=== PATIENT | female | born 1960 | race African-American/Black ===

== ENCOUNTER 2019-01-08 12:17 | Inpatient (IN) | payer OTHER ==
[2019-01-08 12:27] VITALS: BMI 25.0
[2019-01-08] MEDS ORDERED: ONDANSETRON *ODT* 4 MG TABLET SL ONE (13:12)
[2019-01-08] MEDS ORDERED: ONDANSETRON *ODT* 4 MG TABLET ONE (13:20)
[2019-01-08] MEDS ORDERED: SODIUM CHLORIDE 0.9% 1000 ML INFUS.BAG IV ONE ×2 (13:37→18:13)
[2019-01-08] MEDS ORDERED: ONDANSETRON 4 MG/2 ML VIAL ONE ×2 (14:58→20:04)
[2019-01-08 15:22] LABS: BASO % 2.8 % (0-2.0); HEMATOCRIT 44.7 % (32.4-45.2); HEMOGLOBIN 14.4 GM/dl (10.7-15.3); LYMPH % 11.7 % (8-40); MCHC 32.2 g/dl (32.0-36.0); MEAN PLT VOLUME 8.7 fl (7.5-11.1); MONO % 10.8 % (3.8-10.2); NEUT % 74.7 % (42.8-82.8); PLATELET COUNT 409 K/MM3 (134-434); RBC 5.14 M/mm3 (3.60-5.2); RDW 12.9 % (11.6-15.6); WHITE BLOOD COUNT 7.6 K/mm3 (4.0-10.8)
[2019-01-08 15:24] LABS: ALBUMIN 4.7 g/dl (3.4-5.0); ALK PHOS 92 U/L (45-117); ANION GAP 13 MMOL/L (8-16); BILIRUBIN,TOTAL 1.5 mg/dl (0.2-1); BLOOD UREA NITROGEN 38 mg/dl (7-18); CALCIUM 9.8 mg/dl (8.5-10); CHLORIDE 97 mmol/L (98-107); CO2 29 mmol/L (21-32); CREATININE 0.9 mg/dl (0.55-1.3); GLUCOSE,RANDOM 133 mg/dl (74-106); SGOT/AST 34 U/L (15-37); SGPT/ALT 16 U/L (13-61); SODIUM 139 mmol/L (136-145); TOT PROT 7.7 g/dl (6.4-8.2)
[2019-01-08] MEDS ORDERED: ONDANSETRON 4 MG/2 ML VIAL IVPUSH ONE ×2 (15:31→19:52)
[2019-01-08 16:26] LABS: LIPASE 208 U/L (73-393)
--- NOTE | 2019-01-08 18:13 | PDOC ---
History of Present Illness - General Chief Complaint: Nausea/Vomiting Stated Complaint: VOMITING Time Seen by Provider: 01/08/19 12:34 History Source: Patient Exam Limitations: No Limitations - History of Present Illness Initial Comments: 01/08/19 18:09 58 yo F with h/o prior appendectomy myomectomy c section x 2 and hysterectomy h; o sbo, here with c/o n/v. pt states started 3 days ago, has had diffuse abd pain. no f/c no urinary complaints. no f/c no other pains. pt states has had a bm recently which was normal yesterday. no diarreha. does not feel as severe as her prior sbo. no sick contacts. no travel. Past History - Past Medical History Allergies/Adverse Reactions: Allergies Allergy/AdvReac Type Severity Reaction Status Date / Time No Known Allergies Allergy Verified 01/08/19 12:18 Home Medications: Ambulatory Orders Cholecalciferol (Vitamin D3) [Vitamin D] 2,000 unit PO DAILY 04/19/15 Ibuprofen [Motrin -] 400 mg PO PRN PRN 01/08/19 Multivitamins [Tab-A-Vit -] 1 tab PO DAILY 01/08/19 [place]-3 Fatty Acids/Fish Oil [Fish Oil 1,000 mg Capsule] 2 each PO DAILY COPD: No - Suicide/Smoking/Psychosocial Hx Smoking History: Never smoked Have you smoked in the past 12 months: No Information on smoking cessation initiated: No Hx Alcohol Use: No Drug/Substance Use Hx: No Review of Systems - Review of Systems Constitutional: No: Chills, Diaphoresis, Fever, Unexplained wgt Loss HEENTM: No: Blurred Vision, Difficulty Swallowing Respiratory: No: Orthopnea Cardiac (ROS): No: Chest Pain, Edema ABD/GI: Yes: Nausea, Vomiting : No: Burning, Dysuria, Discharge Musculoskeletal: No: Back Pain, Gout All Other Systems: Reviewed and Negative *Physical Exam - Vital Signs Last Vital Signs Temp Pulse Resp BP Pulse Ox 98.8 F 78 17 157/95 100 01/08/19 17:34 01/08/19 17:34 01/08/19 17:34 01/08/19 17:34 01/08/19 17:34 - Physical Exam Comments: 01/08/19 18:11 awake alert lungs clear bilaterally heart rrr no mrg abd soft mild periumbilical ttp. no palp hernia. old scar seen umbilicus and suprapubic region. ext wwp. neuro alert orineted x 3. Moderate Sedation - Procedure Monitoring Vital Signs: Procedure Monitoring Vital Signs Temperature 98.8 F 01/08/19 17:34 Pulse Rate 78 01/08/19 17:34 Respiratory Rate 17 01/08/19 17:34 Blood Pressure 157/95 01/08/19 17:34 O2 Sat by Pulse Oximetry (%) 100 01/08/19 17:34 ED Treatment Course - LABORATORY CBC & Chemistry Diagram: 01/08/19 15:00 01/08/19 15:00 - ADDITIONAL ORDERS Additional order review: Laboratory Results 01/08/19 15:00 Sodium 139 Potassium 5.0 Chloride 97 L Carbon Dioxide 29 Anion Gap 13 BUN 38 H Creatinine 0.9 Creat Clearance w eGFR 64.54 Random Glucose 133 H Calcium 9.8 Total Bilirubin 1.5 H AST 34 ALT 16 Alkaline Phosphatase 92 Total Protein 7.7 Albumin 4.7 Lipase 208 01/08/19 15:00 RBC 5.14 MCV 87.0 MCHC 32.2 RDW 12.9 MPV 8.7 Neutrophils % 74.7 Lymphocytes % 11.7 Monocytes % 10.8 H Eosinophils % 0.0 Basophils % 2.8 H - RADIOLOGY Radiology Studies Ordered: Category Date Time Status ABDOMEN & PELVIS CT W/O CONTR [CT] Stat CT Scan 01/08/19 13:37 Completed - Medications Given in the ED: ED Medications Discontinued Medications Generic Name Dose Route Start Last Admin Trade Name Freq PRN Reason Stop Dose Admin Ondansetron HCl 4 mg 01/08/19 13:12 01/08/19 13:22 Zofran Odt - SL 01/08/19 13:13 4 mg ONCE ONE Administration Ondansetron HCl 4 mg 01/08/19 15:31 01/08/19 15:36 Zofran Injection IVPUSH 01/08/19 15:32 4 mg ONCE ONE Administration Sodium Chloride 1,000 ml 01/08/19 13:37 01/08/19 14:57 Normal Saline - IV 01/08/19 13:38 1,000 ml ONCE ONE Administration Medical Decision Making - Medical Decision Making 01/08/19 18:12 pt wtih n/v abd ttp on exam. differential sbo, pancreatitis, gastritis dehydration renal failure, electrolyte abnormality. uti, plan ct a/p labs ivf antiemetics. pt ct with sbo, will consult surgery. iv hydration given, labs unremarkable. surgery paged. 01/08/19 18:29 pt with sbo, d/w dr mar. will likely treat conservatively. told to admit to hospital will see inpatient. *DC/Admit/Observation/Transfer Diagnosis at time of Disposition: SBO (small bowel obstruction) - Discharge Dispostion Decision to Admit order: Yes - Referrals - Patient Instructions - Post Discharge Activity
[2019-01-08] MEDS ORDERED: ACETAMINOPHEN 1000 MG/100 ML VIAL (NON FORMULARY) IVPB PRN (20:04)
[2019-01-08] MEDS ORDERED: LIDOCAINE HCL 2% JELLY (5 ML/TUBE) ONE (20:11)
[2019-01-08] MEDS: FAMOTIDINE 20 MG/50 ML IVPB 20 MG/50 ML MG IVPB SCH (21:42)
--- NOTE | 2019-01-08 23:18 | HP ---
Admitting History and Physical - Primary Care Physician PCP: Lianna Leiva - Admission Chief Complaint: Nausea, vomiting and abdominal pain History of Present Illness: 58 year old F with h/o chronic constipation, uterine fibroids s/p myomectomy f/ b JOHNATHAN (2005) presents to ED for evaluation of abdominal pain/N/V. Ms. Mancuso reports small bowel obstruction in 2006, treated with lysis of adhesions. She has remained in good health since that time, until 01/05 when she experienced acute onset generalized abdominal pain, Pain described as colicky wavy pain 5/10. Pain radiated to lower back and progressed to include nausea and vomiting along with decreased appetite. After 3days of being unable tolerate solids and liquids, pt decided to present to ED for evaluation. She denies fever/BOSS/Bloody emesis/bloody stools. Last BM 01/07. Pt has had c-scope " many years ago" s/p polypectomy. She has no routine GI with whom she follows. In ED: vitals were BP 157/95. HR 78,RR 17, T 98.8, O2 sat 100%. abdominal CT demonstrated Distal small bowel obstruction. Pt given IVF, Zofran and NGT placed for decompression. Labs unremarkable. Consult placed for Surgery: Dr. Barrera. History Source: Patient Limitations to Obtaining History: No Limitations - Past Medical History Reproductive: Yes: Postmenopausal ...: No Musculoskeletal: Yes: Other (Left navicular fracture) - Past Surgical History Past Surgical History: Yes: Appendectomy, (x 2), Hysterectomy (total) Additional Past Surgical History: myomectomy - Smoking History Smoking history: Never smoked Have you smoked in the past 12 months: No - Alcohol/Substance Use Hx Alcohol Use: No History of Substance Use: reports: None - Social History Usual Living Arrangement: Yes: With Spouse ADL: Independent Occupation: Nurse History of Recent Travel: No Home Medications - Allergies Allergies/Adverse Reactions: Allergies Allergy/AdvReac Type Severity Reaction Status Date / Time No Known Allergies Allergy Verified 01/08/19 12:18 - Home Medications Home Medications: Ambulatory Orders Cholecalciferol (Vitamin D3) [Vitamin D] 2,000 unit PO DAILY 04/19/15 Ibuprofen [Motrin -] 400 mg PO PRN PRN 01/08/19 Multivitamins [Tab-A-Vit -] 1 tab PO DAILY 01/08/19 [place]-3 Fatty Acids/Fish Oil [Fish Oil 1,000 mg Capsule] 2 each PO DAILY Family Disease History - Family Disease History Family Disease History: Other: Mother ( (75) lung cancer) Review of Systems - Review of Systems Constitutional: reports: Chills, Lethargy, Loss of Appetite, Malaise Eyes: reports: No Symptoms HENT: reports: No Symptoms Neck: reports: No Symptoms Cardiovascular: reports: No Symptoms Respiratory: reports: No Symptoms Gastrointestinal: reports: Abdominal Pain, Constipation, Nausea, Vomiting Genitourinary: reports: No Symptoms Breasts: reports: No Symptoms Reported Musculoskeletal: reports: No Symptoms Integumentary: reports: No Symptoms Neurological: reports: No Symptoms Endocrine: reports: No Symptoms Hematology/Lymphatic: reports: No Symptoms Psychiatric: reports: No Symptoms Physical Examination Vital Signs: Vital Signs Temperature 98.8 F 01/08/19 17:34 Pulse Rate 78 01/08/19 17:34 Respiratory Rate 17 01/08/19 17:34 Blood Pressure 157/95 01/08/19 17:34 O2 Sat by Pulse Oximetry (%) 100 01/08/19 17:34 Constitutional: Yes: Well Nourished, No Distress, Calm Eyes: Yes: Conjunctiva Clear, PERRL HENT: Yes: Atraumatic, Normocephalic Neck: Yes: Supple, Trachea Midline Cardiovascular: Yes: Regular Rate and Rhythm Respiratory: Yes: Regular, CTA Bilaterally Gastrointestinal: Yes: Soft, Hypoactive Bowel Sounds, Other (epigastric and b/l upper quadrant tenderness) Musculoskeletal: Yes: WNL Extremities: Yes: WNL Edema: No Peripheral Pulses WNL: Yes Peripheral Pulses: Left Radial: 2+, Right Radial: 2+ Integumentary: Yes: WNL Neurological: Yes: Alert, Oriented ...Motor Strength: WNL Psychiatric: Yes: Alert, Oriented Labs: CBC, BMP 01/08/19 15:00 01/08/19 15:00 Imaging - Results Cat Scan: Report Reviewed (Abd CT 01/08/2019 Impression: Distal small bowel obstruction as noted above. Trace pelvic free fluid. Cholelithiasis. A 0.9 cm right renal hypodense focus is seen probably representing a cyst. Correlate with sonography. Reported By: Humphrey Mensah MD 01/08/19 [id number]) Problem List - Problems (1) Prophylactic measure Assessment/Plan: OOB to chair ambulate as tolerated Code(s): Z29.9 - ENCOUNTER FOR PROPHYLACTIC MEASURES, UNSPECIFIED (2) SBO (small bowel obstruction) Assessment/Plan: Pepcid BID Place NGT for decompression, connect to LWS consult placed for Dr. Barrera Code(s): K56.609 - UNSP INTESTNL OBST, UNSP TO PARTIAL VERSUS COMPLETE OBST Assessment/Plan Dispo: Full code pt wishes to be transferred to [facility] if she needs any surgical intervention Visit type - Emergency Visit Emergency Visit: Yes ED Registration Date: 01/08/19 Care time: The patient presented to the Emergency Department on the above date and was hospitalized for further evaluation of their emergent condition. - New Patient This patient is new to me today: Yes Date on this admission: 01/08/19 - Critical Care Critical Care patient: No
[2019-01-09] MEDS ORDERED: ONDANSETRON 4 MG/2 ML VIAL IVPUSH PRN (02:52)
[2019-01-09] MEDS ORDERED: DEXTROSE 5%-0.45% SALINE 1,000 ML IV SCH (07:00)
[2019-01-09 07:28] LABS: HEMATOCRIT 40.8 % (32.4-45.2); HEMOGLOBIN 12.9 GM/dl (10.7-15.3); MCH 27.9 pg (25.7-33.7); MCHC 31.5 g/dl (32.0-36.0); MEAN CELL VOLUME 88.5 fl (80-96); MEAN PLT VOLUME 8.9 fl (7.5-11.1); PLATELET COUNT 326 K/MM3 (134-434); RBC 4.61 M/mm3 (3.60-5.2); RDW 12.9 % (11.6-15.6); WHITE BLOOD COUNT 6.9 K/mm3 (4.0-10.8)
[2019-01-09 08:09] LABS: ALBUMIN 4.1 g/dl (3.4-5.0); ALK PHOS 81 U/L (45-117); AMYLASE 347 U/L (25-115); ANION GAP 11 MMOL/L (8-16); BILIRUBIN,TOTAL 1.7 mg/dl (0.2-1); BLOOD UREA NITROGEN 28 mg/dl (7-18); CALCIUM 9.2 mg/dl (8.5-10); CHLORIDE 98 mmol/L (98-107); CO2 30 mmol/L (21-32); CREATININE 0.8 mg/dl (0.55-1.3); GLUCOSE,RANDOM 126 mg/dl (74-106); MAGNESIUM 2.6 mg/dL (1.8-2.4); PHOSPHOROUS 3.2 mg/dl (2.5-4.9); POTASSIUM 3.8 mmol/L (3.5-5.1); SGOT/AST 22 U/L (15-37); SGPT/ALT 18 U/L (13-61); SODIUM 139 mmol/L (136-145); TOT PROT 6.8 g/dl (6.4-8.2)
[2019-01-09 10:25] LABS: LIPASE 199 U/L (73-393)
[2019-01-09] MEDS: FAMOTIDINE 20 MG/50 ML IVPB 20 MG/50 ML MG IVPB SCH ×2 (10:32→23:00)
--- NOTE | 2019-01-09 10:44 | EKG ---
Test Reason : Blood Pressure : / mmHG Vent. Rate : 060 BPM Atrial Rate : 060 BPM P-R Int : 132 ms QRS Dur : 088 ms QT Int : 410 ms P-R-T Axes : -19 056 058 degrees QTc Int : 410 ms NORMAL SINUS RHYTHM NORMAL ECG NO PREVIOUS ECGS AVAILABLE Confirmed by Nathan Hendrix MD ([id number]) on 01/09/2019 10:44:16 AM Referred By: Confirmed By:Nathan Hendrix MD
--- NOTE | 2019-01-09 11:28 | CONSULT ---
Consult Consult Specialty:: General Surgery Reason for Consultation:: SBO miltiple abdominal surgeries - History of Present Illness Chief Complaint: nausea and vomiting History of Present Illness: 58 yo female PMH chronic constipation, uterine fibroids s/p myomectomy f/b JOHNATHAN ( 2005), a/p appendectomy presents to ED for evaluation of abdominal pain/N/V. Ms. Mancuso reports small bowel obstruction in 2006, treated with lysis of adhesions. She has remained in good health since that time, until 01/05 when she experienced acute onset generalized abdominal pain, Pain described as colicky wavy pain 10. Pain radiated to lower back and progressed to include nausea and vomiting along with decreased appetite. After 3days of being unable tolerate solids and liquids, pt decided to present to ED for evaluation. She denies fever/BOSS/Bloody emesis/bloody stools. we were called to assess. - History Source History Provided By: Patient, Medical Record Limitations to Obtaining History: No Limitations - Past Medical History ...: No Musculoskeletal: Yes: Other (Left navicular fracture) - Past Surgical History Past Surgical History: Yes: Appendectomy, (x 2), Hysterectomy (total) - Alcohol/Substance Use Hx Alcohol Use: No History of Substance Use: reports: None - Smoking History Smoking history: Never smoked Have you smoked in the past 12 months: No - Social History ADL: Independent Occupation: Nurse History of Recent Travel: No Home Medications - Allergies Allergies/Adverse Reactions: Allergies Allergy/AdvReac Type Severity Reaction Status Date / Time No Known Allergies Allergy Verified 01/08/19 12:18 - Home Medications Home Medications: Ambulatory Orders Cholecalciferol (Vitamin D3) [Vitamin D] 2,000 unit PO DAILY 04/19/15 Ibuprofen [Motrin -] 400 mg PO PRN PRN 01/08/19 Multivitamins [Tab-A-Vit -] 1 tab PO DAILY 01/08/19 [place]-3 Fatty Acids/Fish Oil [Fish Oil 1,000 mg Capsule] 2 each PO DAILY Family Disease History - Family Disease History Family Disease History: Other: Mother ( (75) lung cancer) Review of Systems - Review of Systems Constitutional: denies: Chills, Fever, Unintentional Wgt. Loss Eyes: denies: Blind Spots, Recent Change in Vision HENT: denies: Difficult Swallowing, Throat Pain Neck: denies: Decreased ROM, Other Cardiovascular: denies: Chest Pain, Palpitations Respiratory: denies: Cough, SOB Gastrointestinal: reports: Abdominal Pain, Bloating, Constipation, Vomiting Genitourinary: denies: Burning, Incontinence Breasts: reports: No Symptoms Reported. denies: Pain Musculoskeletal: denies: Crepitus, Decreased ROM, Muscle Cramps Integumentary: denies: Bruising, Change in Color Neurological: denies: Change in LOC, Change in Speech, Seizure, Syncope Endocrine: denies: Unexplained Weight Gain, Unexplained Weight Loss Hematology/Lymphatic: denies: Easily Bruised, Excessive Bleeding Psychiatric: denies: Anxiety, Depression Physical Exam Vital Signs: Vital Signs Temperature 98.6 F 01/09/19 08:00 Pulse Rate 67 01/09/19 08:00 Respiratory Rate 16 01/09/19 08:00 Blood Pressure 135/66 01/09/19 08:00 O2 Sat by Pulse Oximetry (%) 99 01/09/19 09:40 Constitutional: Yes: Well Nourished, No Distress, Calm Eyes: Yes: Conjunctiva Clear, EOM Intact HENT: Yes: Atraumatic, Normocephalic, Other (NGT) Neck: Yes: Supple, Trachea Midline Cardiovascular: Yes: Regular Rate and Rhythm, S1 Respiratory: Yes: Regular, CTA Bilaterally Gastrointestinal: Yes: Soft, Distention, Hypoactive Bowel Sounds, Tenderness ( mild diffuse tenderness) Renal/: No: CVA Tenderness - Left, CVA Tenderness - Right Musculoskeletal: Yes: Muscle Pain, Muscle Weakness Labs: CBC, BMP 01/09/19 06:30 01/09/19 06:30 Imaging - Results Cat Scan: Report Reviewed, Image Reviewed (SBO pattern) Problem List - Problems (1) SBO (small bowel obstruction) Assessment/Plan: Plan for non-operative management however will consider surgery if not improving by 01/11 NPO and IVF hydration NG tube decompression Serial abdominal exams Daily abdominal xrays Serial chemistry with appropriate repletion will follow Thank you for the opportunity to participate in the care of this patient. Code(s): K56.609 - UNSP INTESTNL OBST, UNSP TO PARTIAL VERSUS COMPLETE OBST (2) S/P appendectomy Code(s): Z90.49 - ACQUIRED ABSENCE OF OTHER SPECIFIED PARTS OF DIGESTIVE TRACT (3) S/P myomectomy Code(s): Z98.890 - OTHER SPECIFIED POSTPROCEDURAL STATES (4) Abdominal pain in female Code(s): R10.9 - UNSPECIFIED ABDOMINAL PAIN
--- NOTE | 2019-01-09 13:14 | PN ---
Physical Exam: SUBJECTIVE: Patient seen and examined oob to chair. NGT in place. No vomiting since NGT placed. Last BM was 2 days ago, soft brown stool. Not passing flatus. OBJECTIVE: Vital Signs Period Temp Pulse Resp BP Sys/[place]sey Pulse Ox Last 24 Hr 98.6 F-98.8 F 61-78 16-18 135-157/66-95 98-100 GENERAL: The patient is awake, alert, and fully oriented. LUNGS: Breath sounds equal, clear to auscultation bilaterally HEART: Regular rate and rhythm, S1, S2 ABDOMEN: Soft, nontender, nondistended; bowel sounds not auscultated; NGT to LWS ~500cc's dark brown/green fluid in container EXTREMITIES: 2+ pulses, warm, well-perfused, no edema. NEUROLOGICAL: Cranial nerves II through XII grossly intact. Normal speech Laboratory Results - last 24 hr 01/08/19 01/08/19 01/09/19 15:00 15:00 06:30 WBC 7.6 6.9 RBC 5.14 4.61 Hgb 14.4 12.9 Hct 44.7 40.8 MCV 87.0 88.5 MCH 28.0 27.9 MCHC 32.2 31.5 L RDW 12.9 12.9 Plt Count 409 326 MPV 8.7 8.9 Absolute Neuts (auto) 5.7 Neutrophils % 74.7 Lymphocytes % 11.7 Monocytes % 10.8 H Eosinophils % 0.0 Basophils % 2.8 H Sodium 139 Potassium 5.0 Chloride 97 L Carbon Dioxide 29 Anion Gap 13 BUN 38 H Creatinine 0.9 Creat Clearance w eGFR 64.54 Random Glucose 133 H Calcium 9.8 Phosphorus Magnesium Total Bilirubin 1.5 H AST 34 ALT 16 Alkaline Phosphatase 92 Total Protein 7.7 Albumin 4.7 Total Amylase Lipase 208 01/09/19 06:30 WBC RBC Hgb Hct MCV MCH MCHC RDW Plt Count MPV Absolute Neuts (auto) Neutrophils % Lymphocytes % Monocytes % Eosinophils % Basophils % Sodium 139 Potassium 3.8 Chloride 98 Carbon Dioxide 30 Anion Gap 11 BUN 28 H Creatinine 0.8 Creat Clearance w eGFR 73.93 Random Glucose 126 H Calcium 9.2 Phosphorus 3.2 Magnesium 2.6 H Total Bilirubin 1.7 H AST 22 ALT 18 Alkaline Phosphatase 81 D Total Protein 6.8 Albumin 4.1 Total Amylase 347 H Lipase 199 Active Medications Generic Name Dose Route Start Last Admin Trade Name Freq PRN Reason Stop Dose Admin Acetaminophen 1,000 mg 01/08/19 20:04 01/09/19 10:32 Ofirmev Injection - IVPB 1,000 mg Q8H PRN Administration FEVER Famotidine/Sodium Chloride 20 mg in 50 mls @ 100 mls/hr 01/08/19 22:00 10:32 Pepcid 20 Mg Premixed Ivpb - IVPB 100 mls/hr BID [place] Administration Dextrose/Sodium Chloride 1,000 mls @ 75 mls/hr 01/09/19 07:00 D5-1/2ns - IV ASDIR [place] Ondansetron HCl 4 mg 01/09/19 02:52 01/09/19 10:34 Zofran Injection IVPUSH 4 mg Q6H PRN Administration NAUSEA ASSESSMENT/PLAN 58 year-old female with a PMH significant for multiple abdominal surgeries and recurrent SBOs. PSH: appendectomy, myomectomy, x 2, and JOHNATHAN. Patient underwent lysis of adhesions in 2006 following an SBO. In 2007 she had another SBO. On this admission patient is diagnosed with her third SBO. This is her second SBO s/p lysis of adhesions. SBO --01/08/19 CTAP showed distal small bowel obstruction. Patient had been vomiting prior to arrival. An NGT was placed and put to LWS, has put out ~500cc' s dark brown/greenish fluid. 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 She will be finding an accepting physician. Full code. Visit type - Emergency Visit Emergency Visit: Yes ED Registration Date: 01/08/19 Care time: The patient presented to the Emergency Department on the above date and was hospitalized for further evaluation of their emergent condition. - New Patient This patient is new to me today: Yes Date on this admission: 01/10/19 - Critical Care Critical Care patient: No - Discharge Referral Referred to [facility] No
[2019-01-09] MEDS: ONDANSETRON 4 MG/2 ML VIAL IVPUSH SCH (18:45)
[2019-01-10] MEDS: ONDANSETRON 4 MG/2 ML VIAL IVPUSH SCH ×3 (00:48→17:04)
[2019-01-10 08:02] LABS: BASO % 0.1 % (0-2.0); EOS % 0.4 % (0-4.5); HEMATOCRIT 40.4 % (32.4-45.2); HEMOGLOBIN 12.8 GM/dl (10.7-15.3); LYMPH % 15.2 % (8-40); MCH 27.9 pg (25.7-33.7); MCHC 31.7 g/dl (32.0-36.0); MEAN PLT VOLUME 8.6 fl (7.5-11.1); MONO % 12.2 % (3.8-10.2); NEUT % 72.1 % (42.8-82.8); PLATELET COUNT 338 K/MM3 (134-434); RBC 4.59 M/mm3 (3.60-5.2); RDW 12.5 % (11.6-15.6); WHITE BLOOD COUNT 6.2 K/mm3 (4.0-10.8)
[2019-01-10 08:38] LABS: ALBUMIN 3.8 g/dl (3.4-5.0); ALK PHOS 75 U/L (45-117); ANION GAP 6 MMOL/L (8-16); BILIRUBIN,TOTAL 1.4 mg/dl (0.2-1); BLOOD UREA NITROGEN 20 mg/dl (7-18); CALCIUM 9.1 mg/dl (8.5-10); CHLORIDE 103 mmol/L (98-107); CO2 31 mmol/L (21-32); CREATININE 0.7 mg/dl (0.55-1.3); GLUCOSE,RANDOM 143 mg/dl (74-106); MAGNESIUM 2.6 mg/dL (1.8-2.4); POTASSIUM 3.3 mmol/L (3.5-5.1); SGOT/AST 30 U/L (15-37); SGPT/ALT 27 U/L (13-61); SODIUM 140 mmol/L (136-145); TOT PROT 6.6 g/dl (6.4-8.2)
[2019-01-10] MEDS: FAMOTIDINE 20 MG/50 ML IVPB 20 MG/50 ML MG IVPB SCH ×2 (09:27→21:20)
[2019-01-10] MEDS ORDERED: D5-1/2NS+40 MEQ KCL - 40 MEQ/1,000 ML INFUS.BAG IV SCH (09:45)
--- NOTE | 2019-01-10 10:27 | PN ---
Progress Note, Physician History of Present Illness: 58 yo female PMH chronic constipation, uterine fibroids s/p myomectomy f/b JOHNATHAN ( 2005), a/p appendectomy presents to ED for evaluation of abdominal pain/N/V. stable, NGT still putting out large volumes and . - Current Medication List Current Medications: Active Medications Acetaminophen (Ofirmev Injection -) 1,000 mg IVPB Q8H PRN PRN Reason: FEVER Last Admin: 01/09/19 10:32 Dose: 1,000 mg Famotidine/Sodium Chloride (Pepcid 20 Mg Premixed Ivpb -) 20 mg in 50 mls @ 100 mls/hr IVPB BID [place] Last Admin: 01/10/19 09:27 Dose: 100 mls/hr Dextrose/Sodium Chloride (D5-1/2ns+40 Meq Kcl -) 40 meq in 1,000 mls @ 75 mls/ hr IV ASDIR [place] Last Admin: 01/10/19 09:45 Dose: 75 mls/hr Ondansetron HCl (Zofran Injection) 4 mg IVPUSH Q8H [place] Last Admin: 01/10/19 09:27 Dose: 4 mg - Objective Vital Signs: Vital Signs Temperature 99.1 F 01/10/19 03:00 Pulse Rate 63 01/10/19 06:50 Respiratory Rate 18 01/10/19 08:21 Blood Pressure 144/77 01/10/19 06:50 O2 Sat by Pulse Oximetry (%) 100 01/10/19 06:50 Vital Signs Period Temp Pulse Resp BP Sys/Ramsey Pulse Ox Last 24 Hr 99.0 F-99.6 F 60-79 16-18 139-150/67-77 97-100 Intake & Output 01/09/19 01/10/19 01/10/19 23:59 07:59 15:59 Intake Total 225 1000 Output Total 500 550 Balance -275 450 Intake: IV 225 900 D5-1/2Ns - 1,000 ml @ 75 225 900 mls/hr IV ASDIR [place] Rx#: [id number] IVPB 100 Oral 0 Output: Gastric Drainage 550 Drainage 500 sump tube 500 Other: Voiding Method Toilet Toilet Toilet # Unmeasured Voids Void 3 Bowel Movement No No Constitutional: Yes: Well Nourished, No Distress, Calm Eyes: Yes: Conjunctiva Clear, EOM Intact HENT: Yes: Atraumatic, Normocephalic Neck: Yes: Supple, Trachea Midline Cardiovascular: Yes: Regular Rate and Rhythm, S1, S2 Respiratory: Yes: Regular, CTA Bilaterally Gastrointestinal: Yes: Normal Bowel Sounds, Soft, Distention, Tenderness ...Rectal Exam: Yes: Deferred Genitourinary: No: CVA Tenderness - Left, CVA Tenderness - Right Breast(s): No: Discharge from Nipple, Skin Changes Extremities: No: Cool, Cyanosis Edema: No Peripheral Pulses WNL: Yes Peripheral Pulses: Left Radial: 3+, Right Radial: 3+, Left Doralis Pedis: 3+, Right Dorsalis Pedis: 3+, Left Femoral: 3+, Right Femoral: 3+ Integumentary: No: Jaundice, Rash Neurological: Yes: Alert, Oriented Psychiatric: Yes: Alert, Oriented Labs: CBC, BMP 01/10/19 07:10 01/10/19 07:10 Problem List - Problems (1) SBO (small bowel obstruction) Assessment/Plan: Plan for non-operative management however will consider surgery if not improving by 01/11 NPO and IVF hydration NG tube decompression Serial abdominal exams Daily abdominal xrays Serial chemistry with appropriate repletion will follow Thank you for the opportunity to participate in the care of this patient. Code(s): K56.609 - UNSP INTESTNL OBST, UNSP TO PARTIAL VERSUS COMPLETE OBST (2) S/P appendectomy Code(s): Z90.49 - ACQUIRED ABSENCE OF OTHER SPECIFIED PARTS OF DIGESTIVE TRACT (3) S/P myomectomy Code(s): Z98.890 - OTHER SPECIFIED POSTPROCEDURAL STATES (4) Abdominal pain in female Code(s): R10.9 - UNSPECIFIED ABDOMINAL PAIN
--- NOTE | 2019-01-10 15:56 | DS ---
Physical Exam: SUBJECTIVE: Patient seen and examined oob to chair. OBJECTIVE: Vital Signs Period Temp Pulse Resp BP Sys/Ramsey Pulse Ox Last 24 Hr 97.8 F-99.6 F 63-79 16-18 142-150/67-82 97-100 PHYSICAL EXAM GENERAL: The patient is awake, alert, and fully oriented. LUNGS: Breath sounds equal, clear to auscultation bilaterally, no wheezes, no crackles, no accessory muscle use. HEART: Regular rate and rhythm, S1, S2 ABDOMEN: Soft, nontender, nondistended, bowel sounds not detected on auscultation EXTREMITIES: 2+ pulses, warm, well-perfused, no edema. NEUROLOGICAL: Cranial nerves II through XII grossly intact. Normal speech Laboratory Results - last 24 hr 01/10/19 01/10/19 07:10 07:10 WBC 6.2 RBC 4.59 Hgb 12.8 Hct 40.4 MCV 88.0 MCH 27.9 MCHC 31.7 L RDW 12.5 Plt Count 338 MPV 8.6 Absolute Neuts (auto) 4.5 Neutrophils % 72.1 Lymphocytes % 15.2 Monocytes % 12.2 H Eosinophils % 0.4 Basophils % 0.1 Sodium 140 Potassium 3.3 L Chloride 103 Carbon Dioxide 31 Anion Gap 6 L BUN 20 H Creatinine 0.7 Creat Clearance w eGFR 86.25 Random Glucose 143 H Calcium 9.1 Magnesium 2.6 H Total Bilirubin 1.4 H AST 30 ALT 27 Alkaline Phosphatase 75 Total Protein 6.6 Albumin 3.8 HOSPITAL COURSE: Date of Admission:01/08/19 Date of Discharge: 01/10/19 58 year-old female with a PMH significant for multiple abdominal surgeries and recurrent SBOs. PSH: appendectomy, myomectomy, x 2, and JOHNATHAN. Patient underwent lysis of adhesions in 2006 following an SBO. In 2007 she had another SBO. On this admission patient is diagnosed with her third SBO. This is her second SBO s/p lysis of adhesions. On 01/08/19 , CTAP showed distal small bowel obstruction. Patient had been vomiting prior to arrival. An NGT was placed and put to LWS, has put out ~500cc' s dark brown/greenish fluid. Has been NPO on IV fluids, Zofran. Last bowel movement was 01/07/19. Has not passed flatus. Daily abdominal xrays have been done, little to no improvement. Seen and evaluated by surgery. We have been pursuing conservative medical management but patient aware of possibility of needing surgery. CD of imaging studies will accompany the patient. Dispo: transfer to [facility]. Full code. Minutes to complete discharge: 35 Discharge Summary Reason For Visit: SMALL BOWEL OBSTRUCTION Current Active Problems Abdominal pain in female (Acute) Prophylactic measure (Acute) S/P appendectomy (Acute) S/P myomectomy (Acute) SBO (small bowel obstruction) (Acute) Condition: Stable - Instructions Diet, Activity, Other Instructions: Patient is being transferred to your facility for treatment of a small bowel obstruction. Patient is getting D51/2NS+40meqK @ 75mL/hr. Patient has a nasogastric tube which we have kept to low wall suction. Referrals: Billy Soriano [Non Staff, Medical] - Disposition: TRANSFER ACUTE CARE/OTHER HOSP - Home Medications Comprehensive Discharge Medication List: Ambulatory Orders Acetaminophen Injection [Ofirmev Injection -] 1,000 mg IVPB Q8H PRN vial D5-1/2Ns+40 Meq KCl - 40 meq IV ASDIR #1 infus.bag 01/10/19 Ondansetron Injection [Zofran Injection] 4 mg IVPUSH Q6H PRN vial 01/10/19 This patient is new to me today: No Emergency Visit: Yes ED Registration Date: 01/08/19 Care time: The patient presented to the Emergency Department on the above date and was hospitalized for further evaluation of their emergent condition. Critical Care patient: No - Discharge Referral Referred to [facility] Med P.C.: No
[2019-01-11] MEDS: ONDANSETRON 4 MG/2 ML VIAL IVPUSH SCH ×3 (04:05→17:35)
[2019-01-11] MEDS: FAMOTIDINE 20 MG/50 ML IVPB 20 MG/50 ML MG IVPB SCH ×2 (09:59→21:41)
[2019-01-11 10:13] LABS: ANION GAP 8 MMOL/L (8-16); BLOOD UREA NITROGEN 18 mg/dl (7-18); CALCIUM 9.2 mg/dl (8.5-10); CHLORIDE 104 mmol/L (98-107); CO2 30 mmol/L (21-32); CREATININE 0.8 mg/dl (0.55-1.3); GLUCOSE,RANDOM 146 mg/dl (74-106); MAGNESIUM 2.6 mg/dL (1.8-2.4); POTASSIUM 3.9 mmol/L (3.5-5.1); SODIUM 142 mmol/L (136-145)
[2019-01-11] MEDS: DEXTROSE 5%-0.45% SALINE 1,000 ML IV SCH (12:00)
--- NOTE | 2019-01-11 15:50 | PN ---
Physical Exam: SUBJECTIVE: Patient seen and examined oob to chair. Has been walking in hallway yesterday and today for extended periods of time, no BM, no flatus. NGT continues to put out brown/green fluid. OBJECTIVE: Vital Signs Period Temp Pulse Resp BP Sys/Ramsey Pulse Ox Last 24 Hr 98 F-99.1 F 57-78 16-18 136-156/67-81 99-100 GENERAL: The patient is awake, alert, and fully oriented. LUNGS: Breath sounds equal, clear to auscultation bilaterally, no wheezes, no crackles, no accessory muscle use. HEART: Regular rate and rhythm, S1, S2 ABDOMEN: Soft, nontender, nondistended, bowel sounds not detected on auscultation EXTREMITIES: 2+ pulses, warm, well-perfused, no edema. NEUROLOGICAL: Cranial nerves II through XII grossly intact. Normal speech Laboratory Results - last 24 hr 01/11/19 09:45 Sodium 142 Potassium 3.9 Chloride 104 Carbon Dioxide 30 Anion Gap 8 BUN 18 Creatinine 0.8 Creat Clearance w eGFR 73.93 Random Glucose 146 H Calcium 9.2 Magnesium 2.6 H Active Medications Generic Name Dose Route Start Last Admin Trade Name Freq PRN Reason Stop Dose Admin Acetaminophen 1,000 mg 01/08/19 20:04 01/09/19 10:32 Ofirmev Injection - IVPB 1,000 mg Q8H PRN Administration FEVER Famotidine/Sodium Chloride 20 mg in 50 mls @ 100 mls/hr 01/08/19 22:00 09:59 Pepcid 20 Mg Premixed Ivpb - IVPB 100 mls/hr BID [place] Administration Dextrose/Sodium Chloride 1,000 mls @ 75 mls/hr 01/11/19 12:00 01/11/19 12:00 D5-1/2ns - IV 75 mls/hr ASDIR [place] Administration Ondansetron HCl 4 mg 01/09/19 17:30 01/11/19 09:35 Zofran Injection IVPUSH 4 mg Q8H [place] Administration Ondansetron HCl 4 mg 01/11/19 15:29 Zofran Injection IVPUSH 01/11/19 15:30 ONCE ONE ASSESSMENT/PLAN Date of Admission:01/08/19 Date of Discharge: 01/11/19 58 year-old female with a PMH significant for multiple abdominal surgeries and recurrent SBOs. PSH: appendectomy, myomectomy, x 2, and JOHNATHAN. Patient underwent lysis of adhesions in 2006 following an SBO. In 2007 she had another SBO. On this admission patient is diagnosed with her third SBO. This is her second SBO s/p lysis of adhesions. On 01/08/19 , CTAP showed distal small bowel obstruction. Patient had been vomiting prior to arrival. An NGT was placed and put to LWS, has put out ~500cc' s dark brown/greenish fluid. Has been NPO on IV fluids, Zofran. Last bowel movement was 01/07/19. Has not passed flatus as of 01/11 afternoon. Daily abdominal xrays have been done, little to no improvement. Seen and evaluated by surgery. We have been pursuing conservative medical management but patient aware of possibility of needing surgery. CD of imaging studies will accompany the patient. Dispo: transfer to [facility]. Full code. Visit type - Emergency Visit Emergency Visit: Yes ED Registration Date: 01/08/19 Care time: The patient presented to the Emergency Department on the above date and was hospitalized for further evaluation of their emergent condition. - New Patient This patient is new to me today: No - Critical Care Critical Care patient: No - Discharge Referral Referred to [facility] Med P.C.: No
[2019-01-11] MEDS ORDERED: ONDANSETRON 4 MG/2 ML VIAL IVPUSH ONE (16:30)
[2019-01-12] MEDS: ONDANSETRON 4 MG/2 ML VIAL IVPUSH SCH ×3 (02:07→18:15)
[2019-01-12] MEDS ORDERED: BENZOCAINE/MENTH/CETYLPYRD CL 1 EACH LOZENGE MM PRN (04:37)
[2019-01-12] MEDS ORDERED: TETRACAINE/BENZOCAINE/BUTAMBEN 20 GM SPR TP PRN (04:37)
--- NOTE | 2019-01-12 09:28 | PN ---
Physical Exam: SUBJECTIVE: Patient seen and examined oob to chair. OBJECTIVE: Vital Signs Period Temp Pulse Resp BP Sys/Ramsey Pulse Ox Last 24 Hr 97.8 F-99.1 F 57-78 18-19 140-153/67-81 96-100 GENERAL: The patient is awake, alert, and fully oriented. LUNGS: Breath sounds equal, clear to auscultation bilaterally, no wheezes, no crackles, no accessory muscle use. HEART: Regular rate and rhythm, S1, S2 ABDOMEN: Soft, nontender, nondistended, bowel sounds not detected on auscultation EXTREMITIES: 2+ pulses, warm, well-perfused, no edema. NEUROLOGICAL: Cranial nerves II through XII grossly intact. Normal speech Laboratory Results - last 24 hr 01/11/19 09:45 Sodium 142 Potassium 3.9 Chloride 104 Carbon Dioxide 30 Anion Gap 8 BUN 18 Creatinine 0.8 Creat Clearance w eGFR 73.93 Random Glucose 146 H Calcium 9.2 Magnesium 2.6 H Active Medications Generic Name Dose Route Start Last Admin Trade Name Freq PRN Reason Stop Dose Admin Acetaminophen 1,000 mg 01/08/19 20:04 01/09/19 10:32 Ofirmev Injection - IVPB 1,000 mg Q8H PRN Administration FEVER Benzocaine/Butamben/Tetracaine HCl 1 spray 01/12/19 04:37 Cetacaine [place] - TP DAILY PRN SORE THROAT Benzocaine/Menthol 1 each 01/12/19 04:37 Cepacol Lozenge - MM PRN PRN SORE THROAT Famotidine/Sodium Chloride 20 mg in 50 mls @ 100 mls/hr 01/08/19 22:00 21:41 Pepcid 20 Mg Premixed Ivpb - IVPB 100 mls/hr BID [place] Administration Dextrose/Sodium Chloride 1,000 mls @ 75 mls/hr 01/11/19 12:00 01/11/19 12:00 D5-1/2ns - IV 75 mls/hr ASDIR [place] Administration Ondansetron HCl 4 mg 01/09/19 17:30 01/12/19 02:07 Zofran Injection IVPUSH 4 mg Q8H [place] Administration ASSESSMENT/PLAN: Date of Admission:01/08/19 Date of Discharge: 01/12/19 58 year-old female with a PMH significant for multiple abdominal surgeries and recurrent SBOs. PSH: appendectomy, myomectomy, x 2, and JOHNATHAN. Patient underwent lysis of adhesions in 2006 following an SBO. In 2007 she had another SBO. On this admission patient is diagnosed with her third SBO. This is her second SBO s/p lysis of adhesions. On 01/08/19 , CTAP showed distal small bowel obstruction. Patient had been vomiting prior to arrival. An NGT was placed and put to LWS, has put out ~500cc' s dark brown/greenish fluid. Has been NPO on IV fluids, Zofran. Last bowel movement was 01/07/19. Has not passed flatus as of morning 01/12 morning. Daily abdominal xrays have been done, no significant change. Seen and evaluated by surgery. We have been pursuing conservative medical management but patient aware of possibility of needing surgery. CD of imaging studies will accompany the patient. Dispo: transfer to [facility]. Full code. Visit type - Emergency Visit Emergency Visit: Yes ED Registration Date: 01/08/19 Care time: The patient presented to the Emergency Department on the above date and was hospitalized for further evaluation of their emergent condition. - New Patient This patient is new to me today: No - Critical Care Critical Care patient: No
[2019-01-12] MEDS: FAMOTIDINE 20 MG/50 ML IVPB 20 MG/50 ML MG IVPB SCH (10:53)
[2019-01-12] MEDS: DEXTROSE 5%-0.45% SALINE 1,000 ML IV SCH (12:00)
[2019-01-12 20:01] VITALS: BP 139/68; PULSE 62; TEMP 98.7
== END 2019-01-12 20:49 | disposition short-term general hospital (02) | DRG 390 ==
LOC: FER 12:17 → FM/S 18:29
PROVIDERS: ATTEND Nurse Practitioner Acute Care
DX: K56.609 Unspecified intestinal obstruction, unspecified as to partial versus complete obstruction (principal); D25.9 Leiomyoma of uterus, unspecified; K59.09 Other constipation; R10.9 Unspecified abdominal pain
CPT/HCPCS: 36415; 71045-TC-FY; 74018-TC-FY; 74019-TC-FY; 74176-TC; 80048; 80053; 82150; 83690; 83735; 84100; 85025; 85027; 86850; 86900; 86901; 93005; 99283-25; J0131; J7030; Q0162